=== PATIENT | female | born 1945 | race Caucasian/White ===

== ENCOUNTER 2023-01-23 08:00 | Outpatient (RCR) | payer MEDICARE, SELFPAY | END 2023-01-24 14:39 | disposition home or self-care (01) | LOC: HO.WCC 08:00 | PROVIDERS: PCP Family Medicine; Visit Provider Physician Assistant | DX: E11.621 Type 2 diabetes mellitus with foot ulcer (principal); L97.529 Non-pressure chronic ulcer of other part of left foot with unspecified severity; E11.40 Type 2 diabetes mellitus with diabetic neuropathy, unspecified; E11.22 Type 2 diabetes mellitus with diabetic chronic kidney disease; I12.9 Hypertensive chronic kidney disease with stage 1 through stage 4 chronic kidney disease, or unspecified chronic kidney disease; N18.4 Chronic kidney disease, stage 4 (severe); Z79.84 Long term (current) use of oral hypoglycemic drugs; Z89.421 Acquired absence of other right toe(s); Z87.891 Personal history of nicotine dependence | CPT/HCPCS: 99212 ==

== ENCOUNTER 2023-05-14 08:07 | Outpatient (RCR) | payer MEDICARE, SELFPAY ==
--- NOTE | ~2023-05-14 | XR_ITS ---
EXAMINATION: XR FOOT, RIGHT CLINICAL INFORMATION: Third right toe evaluate for osteomyelitis COMPARISON: None available. TECHNIQUE: AP, lateral, and oblique views of the right foot. FINDINGS: Third toe: No visible bone destruction or periostitis. Mild osteoarthritis of the third PIP joint. 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 Great toe: Advanced osteoarthritis of the first metatarsophalangeal joint with marked joint space narrowing marginal osteophytes and subchondral cystic change. Minimal arterial calcification. Mild osteoarthritis of the naviculocuneiform joint manifested by subchondral cystic change. Prominent plantar calcaneal spur. XR/XR foot RT min 3V IMPRESSION: 1. Osteoarthritis 2. Postsurgical changes of the second toe. 3. No radiographic evidence for osteomyelitis of the third toe.
== END 2023-10-12 12:21 | disposition home or self-care (01) ==
LOC: HO.WCC 08:07
PROVIDERS: PCP Family Medicine; Visit Provider Physician Assistant
DX: Z09 Encounter for follow-up examination after completed treatment for conditions other than malignant neoplasm (principal); E11.9 Type 2 diabetes mellitus without complications; Z86.31 Personal history of diabetic foot ulcer
CPT/HCPCS: 11042; 15275; 73630; 99212; Q4158